=== PATIENT | female | born 1955 | race Caucasian/White ===

== ENCOUNTER 2018-06-01 18:34 | Emergency (ER) | payer MEDICARE, OTHER ==
[~2018-06-01] VITALS: Ht 152.4 cm; Wt 50.8 kg
[~2018-06-01 18:34] MED LIST: LIPITO; SYNTH
[2018-06-01 18:59] VITALS: BP 102/64
--- NOTE | 2018-06-01 19:30 | NUR ---
Pt states she was drinking too much and when she fell, her glasses cut her face. Pt denies taking thinners.
[2018-06-01] MEDS ORDERED: LIDOcaine 1.5% w/epinephrine 1:200,000 5ml ampul IJ ONE (20:40)
[2018-06-01] MEDS ORDERED: LIDOcaine 1% w/EPI 1:100,000 30ml vial (MDV) IJ ONE (20:45)
== END 2018-06-01 21:13 | disposition home or self-care (01) ==
LOC: ER 18:34
DX: S01.412A Laceration without foreign body of left cheek and temporomandibular area, initial encounter (principal); Z56.0 Unemployment, unspecified; W01.0XXA Fall on same level from slipping, tripping and stumbling without subsequent striking against object, initial encounter; Y93.89 Activity, other specified; Y92.89 Other specified places as the place of occurrence of the external cause; Y99.8 Other external cause status
CPT/HCPCS: 12011; 99284; J3490